=== PATIENT | female | born 1950 | race Caucasian/White ===

== ENCOUNTER 2019-01-03 17:09 | Emergency (ER) | payer MEDICARE, OTHER ==
[~2019-01-03] VITALS: Ht 165.1 cm; Wt 70.0 kg
[~2019-01-03 17:09] MED LIST: ASPIRIN EC325 MG OR; CELEXA40 M1 OR; CELEXA40 MG; DURAGESIC50 MCG/H1; DURAGESIC50 MCG/HR TD; LYRICA75 MG; LYRICA75 MG OR; NORCO1 TAB; OXYCODONE10 M1 OR; SYNTHROID100 MCG; SYNTHROID100 MCG OR
[2019-01-03 17:53] LABS: HEMATOCRIT 56.7 % (37.0-47.0); HEMOGLOBIN 18.3 g/dl (12.0-16.0); IMMATURE GRANULOCYTES 0.4 % (0.0-5.0); MEAN CORPUSCULAR HGB 30.7 pG CALC (26.0-32.0); MEAN CORPUSCULAR HGB CONC 32.3 g/L CALC (32.0-36.0); NEUT# 5.25 thou/uL (2.00-7.15); RED BLOOD COUNT 5.97 mill/uL (4.20-5.60)
[2019-01-03 18:09] LABS: BUN 26 mg/dL (8-23); BUN/CREATININE RATIO 43 (12-20 (CALC)); CHLORIDE 104 mmol/l (95-108); CREATININE 0.6 mg/dL (0.5-1.0); ETHYL ALCOHOL 0 mg/dl (0-30); GFR > 60 ML/MIN (>=60 (CALC)); GFR FOR AFR.AMER. > 60 ML/MIN (>=60 (CALC)); SODIUM 142 mmol/l (137-146)
[2019-01-03 18:15] LABS: ANION GAP 21 (6-22 (CALC)); CARBON DIOXIDE 21 mmol/l (22-30)
[2019-01-03 18:51] LABS: INTERNATIONAL NORMALIZED RATIO 1.1 RATIO (0.7-1.3); PROTHROMBIN TIME 11.2 SECONDS (9.0-12.5)
[2019-01-03 19:09] LABS: URINE BLOOD DIPSTICK NEGATIVE (NEGATIVE); URINE COLOR YELLOW; URINE GLUCOSE - DIPSTICK NEGATIVE (NEGATIVE); URINE KETONE >=80 mg/dL (NEGATIVE); URINE LEUK ESTERASE NEGATIVE (NEGATIVE); URINE NITRITE - DIPSTICK NEGATIVE (Negative); URINE PROTEIN - DIPSTICK TRACE mg/dL (NEG-TRACE); URINE SPECIFIC GRAVITY >=1.030; URINE UROBILINOGEN - DIPSTICK 0.2 E.U./dL (0.2)
[2019-01-03 19:10] LABS: URINE BILIRUBIN - DIPSTICK NEGATIVE (NEGATIVE)
[2019-01-03 19:13] LABS: BARBITURATES NEGATIVE (NEGATIVE); COCAINE NEGATIVE (NEGATIVE); METHADONE NEGATIVE (NEGATIVE); OXCYCODONE NEGATIVE (NEGATIVE); TETRAHYDROCANNABIONOL NEGATIVE (NEGATIVE); TRICYLIC ANTIDEPRESSANTS NEGATIVE (NEGATIVE)
[2019-01-03 19:25] LABS: TSH, 3RD GENERATION < 0.02 uIU/mL (0.47 - 4.68)
[2019-01-03 19:45] VITALS: BP 122/62
== END 2019-01-03 19:30 | disposition short-term general hospital (02) ==
LOC: ED 17:09
PROVIDERS: Family Medicine
DX: R94.31 Abnormal electrocardiogram [ECG] [EKG] (principal); R41.82 Altered mental status, unspecified; F17.200 Nicotine dependence, unspecified, uncomplicated
CPT/HCPCS: J1644